=== PATIENT | female | born 1985 | race Hispanic/Latino ===

== ENCOUNTER 2017-10-21 05:51 | Inpatient (IN) | payer OTHER ==
[~2017-10-21] VITALS: Ht 170.2 cm; Wt 79.4 kg
[~2017-10-21 05:51] MED LIST: IBUPROFEN800 M1 PO; KEFLEX500 M1 PO; PERCOCET 5-3251 EACH PO
--- NOTE | 2017-10-21 09:32 | Operative Report ---
Operative/Inv Procedure Report Surgery Date: 10/21/17 Name of Procedure: Repeat low flap transverse section via Pfannenstiel skin incision Pre-Operative Diagnosis: Previous section term Post-Operative Diagnosis: Same Estimated Blood Loss: 500 Surgeon/Bar Tender: Zachery WARD,Jenny Ann and Dr. Garcia Anesthesia: block Operative/Procedure Note Note: Procedure note patient was taken the operating room placed on position after adequate anesthesia patient placed in dorsolithotomy position the vagina from dorsal fashion was catheterized examination anesthesia performed at this point Pugh was placed on IV Vena dines in place the abdomen was prepped and draped so fashion 2 fingerbreadths of symptoms pubis in midline skin was cut was carried down to rectus fascia which was cut in curvilinear fashion either direction peritoneal cavity is entered high into the abdomen the low blade of the Margoth was placed and lower and incision the visceral peritoneum the uterus was dissected anteriorly the bladder flap was developed in the lower using saline use his neck entered with the back of knife the incision was dissected bluntly as well as sharply on since removed from the field was delivered over the abdominal wall with the cord was doubly clamped and cut infant was suction well with bulb was handed to language assistant was waiting delivering to aid in resuscitation placenta was anterior it was delivered manually noted to be intact the uterus was wiped clean with 2 wet dry laps insurance free of her membranes I intravenous Pitocin and intramyometrial Pitocin and Methergine was used to aid in uterine contractility patient tolerated that well I at this point the uterus was oversewn running locking suture was indicated running locking suture is a interrupted [id number] were used for hemostasis patient tolerated that well I at this point uses turned to abdominal cavity found be hemostatic the abdomen was irrigated copious amounts warm sounds are clear peritoneum surprise me 0 fascia was reapproximated to continue sutures 1 skin was reapproximated robert at the end the case the counts were correct the urine was clear mother and infant transported recovery room awake alert Findings: Viable male infant 8 lbs. 3 oz. three-vessel cord normal tubes and ovaries bilaterally otherwise normal anatomy
[2017-10-22 01:33] VITALS: BP 116/72
[2017-10-22 08:44] LABS: ABSOLUTE BASOPHIL COUNT 0 /CUMM (0.0-0.2); ABSOLUTE EOSINOPHIL COUNT 0.1 /CUMM (0.0-0.7); ABSOLUTE GRANULOCYTE CT 5.8 /CUMM (1.4-6.5); ABSOLUTE LYMPH COUNT 2.8 /CUMM (1.2-3.4); ABSOLUTE MONOCYTE COUNT 0.6 /CUMM (0.10-0.60); BASOPHIL % 0.3 % (0.0-2.0); EOSINOPHIL % 0.7 % (0-5); GRANULOCYTE % 62.1 % (42.2-75.2); HEMATOCRIT 30.2 % (37-47); MEAN CORPUSCULAR HGB 32.2 PG (27.0-31.0); MEAN CORPUSCULAR HGB CONC 34.8 G/DL (33.0-37.0); MEAN CORPUSCULAR VOLUME 92.5 FL (81.0-99.0); MEAN PLATELET VOLUME 8.5 FL (7.4-10.4); PLATELET COUNT 231 /CUMM (130-400); RED BLOOD CELL CT 3.27 /CUMM (4.20-5.40); WHITE BLOOD CELL COUNT 9.4 /CUMM (4.8-10.8)
--- NOTE | 2017-10-22 10:19 | PN- Post Delivery/GYN ---
Subjective Subjective: NO COMPLAINTS Objective Last 24 Hrs of Vital Signs/I&O Vital Signs Date Time Temp Pulse Resp B/P B/P Pulse O2 O2 Flow FiO2 Mean Ox Delivery Rate 10/22 0133 116/72 Physical Exam: PE THIN WFIN NAD ABD SOFT NT INCISION CDI EXT -EDEMA-HOMANS Assessment/Plan Assessment/Plan ASSESS S/P C/S CONT PPC
--- NOTE | 2017-10-23 12:37 | PN- Post Delivery/GYN ---
Subjective Subjective: NO COMPLAINTS Objective Last 24 Hrs of Vital Signs/I&O PER CHART Physical Exam: PE THIN HF IN NAD ABD SOFT NT INCISION CDI EXT -EDEMA -HOMANS Assessment/Plan Assessment/Plan ASSESS S/PC/S PLAN D/C IN AM
[2017-10-23] MEDS ORDERED: PERCOCET 5-3251 EACH PO (12:40)
[2017-10-23] MEDS ORDERED: IBUPROFEN800 M1 PO (12:40)
--- NOTE | 2017-10-24 07:47 | PN- Post Delivery/GYN ---
Subjective Subjective: NO COMPLAINTS Objective Last 24 Hrs of Vital Signs/I&O VSS AFEBRILE Physical Exam: PE THIN HF IN NAD ABD SOFT NT INCISION CDI FUNDUS FIRM NT LOCHIA MINIMAL EXT -EDEMA-HOMANS Assessment/Plan Assessment/Plan ASSESS S/P C/S PLAN D/C HOME WITH INSTRUCTIONS
--- NOTE | 2017-10-24 08:18 | Surgical Discharge Summary ---
Visit Information Visit Dates Admission Date: 10/21/17 Discharge Date: 10/25/17 History of Present Illness Chief Complaint: Here to have a baby Medical History Isolation History: Standard Surgical History Pertinent Surgical History: Psychosocial History What is Your Primary Language? Upper Sorbian Review of Systems: Negative surgery review of systems as stated in the [facility] Hospital Course Course Attending Physician: Zachery WARD,Jenny Ann Primary Care Physician: Patient Has No Primary Care Dr Hospital Course: Vision was admitted for a repeat low flap transverse section first postoperative day she did well she was out of bed to chair she had tolerated clear liquids I she was tolerating oral pain medication and on the third postoperative day patient was discharged home the following physical exam she is a thin female HEENT anicteric lungs clear heart S1 and S2 abdomen soft incision clean dry and intact fundus firm lochia minimal extremities +1 edema negative Homans Allergies: Coded Allergies: No Known Drug Allergies (NONE 10/22/17) Disposition Summary Disposition Principal Diagnosis: Status post repeat low flap transverse section Additional Diagnosis: Anemia Discharge Disposition: home or self care Discharge Instructions General Discharge Information Code Status: Full Code Patient's Diet: Regular Patient's Activity: Pelvic rest no heavy lifting greater than 15 pounds no driving for 2 weeks Follow-Up Instructions/Appts: 2 weeks return visit to remove robert 1 week in my office Medications at Discharge Discharge Medications: Stop taking the following medications: Ibuprofen (Ibuprofen) 800 MG TABLET ORAL EVERY SIX HOURS NEEDED as needed for PAIN Qty = 30 Oxycodone HCl/Acetaminophen (Percocet 5-325 MG Tablet) 1 EACH TABLET ORAL EVERY 4 HOURS NEEDED as needed for PAIN 6-10 Qty = 30 Cephalexin (Keflex) 500 MG CAPSULE ORAL THREE TIMES DAILY Qty = 21 Start taking the following new medications: Ibuprofen (Ibuprofen) 800 MG TABLET 800 Milligram ORAL EVERY SIX HOURS NEEDED as needed for UTERINE CRAMPING Qty = 30 No Refills Oxycodone HCl/Acetaminophen (Percocet 5-325 MG Tablet) 5 MG-325 MG TABLET 1 Tablet ORAL EVERY 4 HOURS NEEDED as needed for PAIN SCALE 4-6 (MODERATE ) Qty = 30 No Refills
== END 2017-10-24 13:13 | DRG 766 ==
LOC: GNO 05:51
PROVIDERS: Specialist
PROC: 10D00Z1 Extraction of Products of Conception, Low, Open Approach (ICD-10-PCS; principal; 2017-10-21)
DX: O34.211 Maternal care for low transverse scar from previous cesarean delivery (principal); N85.8 Other specified noninflammatory disorders of uterus; Z3A.39 39 weeks gestation of pregnancy; Z37.0 Single live birth
CPT/HCPCS: GNOS; 36415; 87086; J0690; J1650; J1885; J2210; J3101; J7120